=== PATIENT | female | born 1975 | race Caucasian/White ===

== ENCOUNTER 2016-09-09 15:49 | Emergency (ER) | payer MEDICAID ==
[2016-09-09] MEDS ORDERED: NS 1,000 ML IV ONE (16:21)
--- NOTE | 2016-09-09 16:22 | EDPHY ---
H & P Stated Complaint: Back Pain, Left flank pain x1 week Time Seen by Provider: 09/09/16 16:08 HPI/ROS: CHIEF COMPLAINT: left rib pain HISTORY OF PRESENT ILLNESS: The patient is a 41-year-old female who comes to the emergency department complaining of left-sided rib pain. She states that she fell while walking in the snow and hit some snow with left side of her ribs 1 week ago. The next day she began having pain is had pain ever since. Initially she thought that it might be GI because she has a history of GI complaints in irritable bowel disease. She saw her primary as well as a prop maker who told her was unlikely to be gastrointestinal a related. Her primary also performed a urinalysis that she reports was negative. She has not had any dysuria. She has not had a fever. She has not had any hematuria. The pain is been constant and hurts with movement or palpation. No shortness of breath. No history of cardiac disease. She also has a history of chronic pain and states that she has been smoking a lot of marijuana but the pain does not go away. She had a cervical spine injection 3 days ago and she states that this has significantly helped the pain and paresthesias in her left arm. She does not think that those are related. REVIEW OF SYSTEMS: Constitutional: denies: chills, fever, recent illness, recent injury EENTM: denies: blurred vision, double vision, nose congestion Respiratory: denies: cough, shortness of breath Cardiac: denies: chest pain, irregular heart rate, lightheadedness, palpitations Gastrointestinal/Abdominal: denies: abdominal pain, diarrhea, nausea, vomiting, blood streaked stools Genitourinary: denies: dysuria, frequency, hematuria, pain Musculoskeletal: See HPI Skin: denies: lesions, rash, jaundice, bruising Neurological: denies: headache, numbness, paresthesia, tingling, dizziness, weakness Hematologic/Lymphatic: denies: blood clots, easy bleeding, easy bruising Immunologic/allergic: denies: HIV/AIDS, transplant EXAM: GENERAL: Well-appearing, well-nourished and in no acute distress. HEAD: Atraumatic, normocephalic. EYES: Pupils equal round and reactive to light, extraocular movements intact, sclera anicteric, conjunctiva are normal. ENT: TMs normal, nares patent, oropharynx clear without exudates. Moist mucous membranes. NECK: Normal range of motion, supple without lymphadenopathy or JVD. LUNGS: Left-sided anterior rib pain. No crepitus or deformity. Breath sounds clear to auscultation bilaterally and equal. No wheezes rales or rhonchi. HEART: Regular rate and rhythm without murmurs, rubs or gallops. ABDOMEN: Soft, nontender, normoactive bowel sounds. No guarding, no rebound. No masses appreciated. BACK: No CVA tenderness, no spinal tenderness, step-offs or deformities EXTREMITIES: Normal range of motion, no pitting or edema. No clubbing or cyanosis. NEUROLOGICAL: Cranial nerves II through XII grossly intact. Normal speech, normal gait. 5/5 strength, normal movement in all extremities, normal sensation PSYCH: Normal mood, normal affect. SKIN: Warm, dry, normal turgor, no visible rashes or lesions. Source: Patient Exam Limitations: No limitations - Personal History LMP (Females 10-55): Unknown Current Tetanus/Diphtheria Vaccine: Unsure Current Tetanus Diphtheria and Acellular Pertussis (TDAP): Unsure - Medical/Surgical History Hx Asthma: No Hx Chronic Respiratory Disease: No Hx Diabetes: No Other PMH: PMH: chronic fatigue, "GI problems", "spine injection",. PSH: [place] - Family History Significant Family History: No pertinent family hx - Social History Smoking Status: Never smoked Alcohol Use: None Drug Use: None Constitutional: Initial Vital Signs Temperature (C) 36.7 C 09/09/16 15:57 Heart Rate 53 L 09/09/16 15:57 Respiratory Rate 18 09/09/16 15:57 Blood Pressure 108/61 09/09/16 15:57 O2 Sat (%) 96 09/09/16 15:57 O2 Delivery Mode Room Air Allergies/Adverse Reactions: acetaminophen [From Percocet] Allergy (Verified 09/09/16 16:03) codeine Allergy (Verified 09/09/16 16:03) diclofenac Allergy (Verified 09/09/16 16:03) oxycodone HCl [From Percocet] Allergy (Verified 09/09/16 16:03) Home Medications: Medication Instructions Recorded Unobtainable 09/09/16 Medical Decision Making - Diagnostics Imaging: X-ray: chest x-ray was obtained. I viewed the images myself on the PACS system. My interpretation of the images is: Left rib fracture. The radiologist interpretation is left 10th rib fracture. ED Course/Re-evaluation: 5:40 p.m. we discussed the x-ray results. The patient is relieved to have a diagnosis. Discussed the amounts of Tylenol and ibuprofen that would be appropriate to take. She will also continue to smoke marijuana. She does not ask for narcotics. She declines further workup or testing at this time is eager to go home. Differential Diagnosis: Partial list of the Differential diagnosis considered include but were not limited to; rib fracture, contusion, kidney stone, urinary tract infection and although unlikely based on the history and physical exam, I also considered pneumonia, peptic ulcer disease, ovarian cyst,. I discussed these differential diagnoses and the plan with the patient as well as the usual and expected course. The patient understands that the diagnosis is provisional and that in medicine we are not always correct and that further workup is often warranted. Usual and customary warnings were given. All of the patient's questions were answered. The patient was instructed to return to the emergency department should the symptoms at all worsen or return, otherwise to followup with the physician as we discussed. - Data Points Laboratory Results: Laboratory Results 09/09/16 16:45 09/09/16 16:45 09/09/16 09/09/16 09/09/16 16:45 16:45 16:45 WBC 10.23 10^3/uL H 10^3/uL (3.80-9.50) RBC 4.81 10^6/uL 10^6/uL (4.18-5.33) Hgb 14.8 g/dL g/dL (12.6-16.3) Hct 44.5 % % (38.0-47.0) MCV 92.5 fL fL (81.5-99.8) MCH 30.8 pg pg (27.9-34.1) MCHC 33.3 g/dL g/dL (32.4-36.7) RDW 12.9 % % (11.5-15.2) Plt Count 264 10^3/uL 10^3/uL (150-400) MPV 9.5 fL fL (8.7-11.7) Neut % (Auto) 62.6 % % (39.3-74.2) Lymph % (Auto) 28.9 % % (15.0-45.0) [place] % (Auto) 7.4 % % (4.5-13.0) Eos % (Auto) 0.4 % L % (0.6-7.6) Baso % (Auto) 0.4 % % (0.3-1.7) Nucleat RBC Rel Count 0.0 % % (0.0-0.2) Absolute Neuts (auto) 6.40 10^3/uL 10^3/uL (1.70-6.50) Absolute Lymphs (auto) 2.96 10^3/uL 10^3/uL (1.00-3.00) Absolute Monos (auto) 0.76 10^3/uL 10^3/uL (0.30-0.80) Absolute Eos (auto) 0.04 10^3/uL 10^3/uL (0.03-0.40) Absolute Basos (auto) 0.04 10^3/uL 10^3/uL (0.02-0.10) Absolute Nucleated RBC 0.00 10^3/uL 10^3/uL (0-0.01) Immature Gran % 0.3 % % (0.0-1.1) Immature Gran # 0.03 10^3/uL 10^3/uL (0.00-0.10) Sodium 141 mEq/L mEq/L (134-144) Potassium 4.1 mEq/L mEq/L (3.5-5.2) Chloride 106 mEq/L mEq/L (97-110) Carbon Dioxide 23 mEq/l mEq/l (22-31) Anion Gap 12 mEq/L mEq/L (8-16) BUN 15 mg/dL mg/dL (7-23) Creatinine 0.8 mg/dL mg/dL (0.6-1.0) Estimated GFR > 60 Glucose 81 mg/dL mg/dL (70-100) Calcium 10.0 mg/dL mg/dL (8.5-10.4) Total Bilirubin 0.7 mg/dL mg/dL (0.1-1.4) Conjugated Bilirubin 0.2 mg/dL mg/dL (0.0-0.5) Unconjugated Bilirubin 0.5 mg/dL mg/dL (0.0-1.1) AST 22 IU/L IU/L (14-46) ALT 34 IU/L IU/L (9-52) Alkaline Phosphatase 58 IU/L IU/L (38-126) Total Protein 7.4 g/dL g/dL (6.3-8.2) Albumin 4.6 g/dL g/dL (3.5-5.0) Lipase 174.0 IU/L IU/L (23-300) Beta HCG, Qual NEGATIVE Medications Given: Discontinued Medications Sodium Chloride (Ns) 1,000 mls @ 0 mls/hr IV ONCE ONE PRN Reason: Wide Open Stop: 09/09/16 16:22 Last Admin: 09/09/16 16:54 Dose: 1,000 mls Departure - Departure Disposition: Home, Routine, Self-Care Clinical Impression: Rib fracture Qualifiers: Encounter type: initial encounter Rib fracture type: single rib Fracture type: closed Laterality: left Qualified Code(s): S22.32XA - Fracture of one rib, left side, initial encounter for closed fracture Condition: Fair Instructions: Rib Fracture (ED) Additional Instructions: You may take 1000 mg of Tylenol every 8 hours . You may take 800 mg of ibuprofen every 8 hours. He may take them together or alternating . Referrals: LINNEA JASON [Other] - As per Instructions
[2016-09-09 17:01] LABS: % IMMATURE GRANULYOCYTES 0.3 % (0.0-1.1); ABSOLUTE IMMATURE GRANULOCYTES 0.03 10^3/uL (0.00-0.10); ADD DIFF? NO; ADD MORPH? NO; ADD SCAN? NO; ATYPICAL LYMPHOCYTE FLAG 10 (0-99); FRAGMENT RBC FLAG 0 (0-99); HEMATOCRIT 44.5 % (38.0-47.0); HEMOGLOBIN 14.8 g/dL (12.6-16.3); LEFT SHIFT FLG 10 (0-99); LIPEMIA HEMOLYSIS FLAG 80 (0-99); MEAN CELL HEMOGLOBIN 30.8 pg (27.9-34.1); MEAN CELL HEMOGLOBIN CONCENTR. 33.3 g/dL (32.4-36.7); MEAN CELL VOLUME 92.5 fL (81.5-99.8); MEAN PLATELET VOLUME 9.5 fL (8.7-11.7); PLATELET CLUMPS FLAG 0 (0-99); PLATELET COUNT 264 10^3/uL (150-400); RED BLOOD CELL COUNT 4.81 10^6/uL (4.18-5.33); RED CELL DISTRIBUTION WIDTH 12.9 % (11.5-15.2)
[2016-09-09 17:17] LABS: ALANINE AMINOTRANSFERASE 34 IU/L (9-52); ALBUMIN 4.6 g/dL (3.5-5.0); ALKALINE PHOSPHATASE 58 IU/L (38-126); ANION GAP 12 mEq/L (8-16); ASPARTATE AMINOTRANSFERASE 22 IU/L (14-46); BILIRUBIN,TOTAL 0.7 mg/dL (0.1-1.4); BILIRUBIN-CONJUGATED 0.2 mg/dL (0.0-0.5); BILIRUBIN-UNCONJUGATED 0.5 mg/dL (0.0-1.1); CARBON DIOXIDE 23 mEq/l (22-31); CHLORIDE 106 mEq/L (97-110); CREATININE 0.8 mg/dL (0.6-1.0); GLOMERULAR FILTRATION RATE > 60; GLUCOSE 81 mg/dL (70-100); POTASSIUM 4.1 mEq/L (3.5-5.2); SODIUM 141 mEq/L (134-144); TOTAL PROTEIN 7.4 g/dL (6.3-8.2)
[2016-09-09 17:52] VITALS: BP 121/88; PULSE 86; RESP 20; TEMP 98.8; O2SAT 99
== END 2016-09-09 17:52 | disposition home or self-care (01) ==
DX: S22.32XA Fracture of one rib, left side, initial encounter for closed fracture (principal); W18.09XA Striking against other object with subsequent fall, initial encounter; Y99.8 Other external cause status; Y93.01 Activity, walking, marching and hiking

== ENCOUNTER 2017-03-06 07:41 | Day surgery (SDC) | payer MEDICAID ==
--- NOTE | 2017-03-02 08:34 | PDGENHP ---
History and Physical - Chief Complaint LEFT HIP PAIN - History of Present Illness Bilateral~Femoroacetabular impingement (CHALINO) Cam type~~(L>R) HISTORY OF PRESENT ILLNESS: Jeannieis a 41 y.o.~active female~who I have had the pleasure to consult on today. ~I have enjoyed meeting her. She~lives in [place]. ~Jeanniedoes not work due to Chronic Fatigue syndrome; she is also in remission from breast cancer for the past 2 years. 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 She ~is single; she~has no~children. ~Jeannieenjoys hiking, swimming, biking. Alexia's bilateral~hip pain (L>R). The left hip has been bothering her for 5-6 years; the right hip has been bothering her for 2-3 years. She has no recalled trauma or injury, and with no~previous complaints.~Jeanniedoes not have~a known history of hip dysplasia. Presentation today is of C-pattern left hip pain with radiation up to the iliac crest, and right hip posterior pain. The hip does~wake her~at night and does~ click and catch on her. Sitting can be a real struggle~for her. Jeanniedoes~ report suffering from lower back pain episodes. Jeanniehas not~participated in physical therapy and has not~tried other conservative measures. She~has not~received sufficient symptomatic improvement. Jeanniehas~utilized medication for pain management, including NSAID and OTC acetaminophen~and medical marijuana. Jeanniehas used medical marijuana for 6 years and NSAID/acetaminophen for 4-5 weeks. Jeannieunderstands that she~has a hip and pelvis problem which should be researched and wishes to get a better understanding of her~hip status, followed by an establishment of a treatment strategy, hoping she~would be able to get back to her~well being active life. History: Past medical history: ~ Patient ~has a past medical history of Abnormal glandular Papanicolaou smear of cervix; Breast cancer (HC code) (2013); Broken rib; Chronic fatigue syndrome; Chronic fatigue syndrome (07/2012); Chronic pain syndrome; Eczema; Gastrointestinal disorder; Medical marijuana use; Migraines; Reactive airway disease; and Seasonal allergies. She also has no past medical history of Abnormal stress test; Abnormal stress test; Arthritis; Chlamydia; Congenital anomaly of heart; Diabetes insipidus (HC code); Diabetes mellitus of mother, complicating , childbirth, or the puerperium, unspecified as to episode of care(648.00); Gonorrhea; Hearing loss; High cholesterol; Hypertension ; Inflammatory bowel disease; Rheumatic fever/heart disease; Seizures (HC code) ; Sickle cell anemia (HC code); Syncope and collapse; Unspecified asthma(493.90) ; or Vision abnormalities. Relevant familial history: DM Past surgical history: No. Surgery Anesthesia Year Outcome 1 Right breast lumpectomy General 2014 Good 2 Gall Bladder General 2015 Good Alexia~denies problematic issues with general anesthesia in the past. I have reviewed, verified and agree with the past medical, surgical, family and social history. Current Medications:~has a current medication list which includes the following prescription(s): acetaminophen, ascorbate calcium, azelastine, cetirizine, cyclobenzaprine, diazepam, hydrocodone-acetaminophen, ibuprofen, lactobacillus acidophilus, lidocaine, lidocaine, lidocaine 5% (700 mg/patch), lorazepam, magnesium, mometasone, multivitamin, naratriptan, ondansetron, triamcinolone, and UNABLE TO FIND. ALLERGIES:~is allergic to effexor [venlafaxine]; diclofenac sodium; gluten; percocet [oxycodone-acetaminophen]; and tylenol-codeine [acetaminophen-codeine]. Objective: Physical Examination: Jeannieis 5~feet 8~inches tall and weighs~137~Lbs. Alexia~is AAO x3; she~is well- nourished, in NAD. Skin is warm and dry. ~Breathing is non-labored. ~CV with RRR by pulse. Abdomen is soft, NTND. Currently, she~walks with a normal~gait. Trendelenburg sign is negative~and proprioception~is reduced, both~sides. She~presents~with moderate~signs of joint laxity.~Beightons Score: 5 Lower spine examination is negative~for sciatic or femoral nerve irritation with negative~SLR &~femoral stretch tests. Range of motion of the spine is normal~for flexion, extension, and rotations, with no~associated pain. Strength, Sensation and pulses are normal - bilaterally~abnormal - normal~with exception of~lateral left leg numbness. Ankles and knees exams are normal~and no~mal-alignment is evident. She~has~no leg length discrepancy. Thigh circumference is symmetric~with no evidence for muscle atrophy~on both~ sides. Hip ROM (degrees): FL ER At 90~hip FL IR At 90~hip FL AB AD EX IR Neutral hip ER Neutral hip R 115 50 15 40 5 5 45 40 L 110 50 20 40 5 5 45 40 Specific hip and pelvis tests: Quadrant ALEXIS Roll Add. Longus R + + Negative Negative L +++ +++ +++ +++ Glut. Med ITB Pos. Imp R Negative 5/5 strength Negative 5/5 strength Negative L Negative 5/5 strength Negative 5/5 strength Negative Squeeze test measured normal Bony Symphysis pubis is painful~to touch while concentric activity of the rectus abdominis, does~produce pain at its insertion on left side. Ilio Psos specific tests are positive for pain during cycling for the left hip~ and no snap. HF has good strength/no pain both hips. Anterior and posterior capsule tenderness bilaterally, Lateral capsule on Left. Greater trochanteric burse is painful~on the left hip. Piriformis tests: FAIR is negative, with no~local signs of neuritis related to sciatic nerve. SIJs examination is produces pain on both sides~with normal~ALEXIS in relation and local tenderness. Hamstrings tests are negative~functional contraction and~positive~tendinopathy both hips. L>R at insertion site. On a daily basis, the following percentages reflect Alexia's overall total pain: Deep hip: 60% SI: 25% GT: 5% Adductor: 5% Back: 10% Imaging: Radiology studies which I~have personally reviewed, analyzed and measured are below: XR: AP of the hip and pelvis: Performed in a good~technique Coccyx to pubic symphysis distance 1.9~cm. 0~caudal/cephal [place]~Lines are preserved. Minimal~Pathological signs are seen in the Symphysis Pubis. Minimal~Pathological signs are seen at the Ischial~tuberosity. ~ Specific measurements show: NSA~ LCE Sourcil~Angle Sharp's angle Lat. Cam Lat. Pincer C.Over~sign Head~Coverage % ATDmm R N 32 6 46 - - - N N L N 31 5 46 - - - N N Pos. wall sign ISS NAD ~~Dysplasia Comments R Negative Negative 18~mm Negative L Negative Negative 13~mm Negative Sclerosis Sup. Lat. OA Cysts Joint Space-WBZ Joint Space-Medial R Negative Negative Negative 5.5~mm 4.6~mm L Negative Negative Negative 5.3~mm 4.2~mm X Table lateral: Anterior cam lesion is seen~on both hips. Alpha Angle: ~ Right 64~dergrees Left 65~degrees In order to differentiate between the various possible sources of pain Jeannie opted to move forward with a Left hip~intra articular injection today in clinic. After verbal consent was obtained and Jeannievoiced understanding of risks of infection, misplaced injection, fat or skin atrophy or injection into unintended structures, skin was prepped and draped in routine sterile fashion. With sterile technique, after local skin and subcutaneous tissues were injected with 5cc 1% lidocaine, an injection of 2cc of Kenalog 40 and 5cc of 1% lidocaine +marcaine~was injected into Alexia's hip joint without complication. The procedure was well tolerated. Jeannienoted improved symptoms with activity immediately after injection. The injection took away 70% of her deep hip pain and 50-60% of her overall pain, confirming~the hip joint as the major source of her~pain. Impression and plan:~ Jeannieis a 41 y.o.~active female~suffering from symptomatic bilateral~hip pain (L >R)~due to Bilateral~Femoroacetabular impingement (CHALINO) Cam type~causing significant disability to her~and altering~her~sport and life activities. Physical examination, imaging, and her~story correspond with the diagnosis mentioned above. As Alexia has not attempted Physical Therapy we will prescribe this for her. Alexia will follow-up with us in 2-3 months. If her pain has returned we will consider getting a 3D CT and discussing surgical treatment options with her. Jeannieis happy with this plan. I wish~Alexia~all the best, ~~ Kris Lamb MD History Information - Allergies/Home Medication List Allergies/Adverse Reactions: acetaminophen [From Percocet] Allergy (Verified 09/09/16 16:03) codeine Allergy (Verified 09/09/16 16:03) diclofenac Allergy (Verified 09/09/16 16:03) oxycodone HCl [From Percocet] Allergy (Verified 09/09/16 16:03) Home Medications: Cyclobenzaprine 01/16/17 [Last Taken Unknown] Herbals/Supplements -Info Only 01/16/17 [Last Taken Unknown] Lidocaine 01/16/17 [Last Taken Unknown] Mometasone Furoate Nasal 01/16/17 [Last Taken Unknown] Tylenol 01/16/17 [Last Taken Unknown] Zofran 01/16/17 [Last Taken Unknown] I have personally reviewed and updated: medical history - Social History Smoking Status: Former smoker
[2017-03-06] MEDS ORDERED: ACETAMINOPHEN 500 MG TAB PO ONE (08:01)
[2017-03-06] MEDS ORDERED: PREGABALIN 150 MG CAP PO ONE (08:01)
[2017-03-06] MEDS ORDERED: ceFAZolin 2 GM/DEXTROSE 100 ML IV ONE (08:01)
[2017-03-06 08:05] VITALS: PULSE 58
[2017-03-06] MEDS ORDERED: LR 1,000 ML IV ONE (08:05)
[2017-03-06] MEDS ORDERED: HYDROmorphONE/DILAUDID 2 MG/ML INJ ONE ×2 (09:28→12:01)
[2017-03-06] MEDS ORDERED: HYDROmorphONE/DILAUDID 1 MG/ML SYR IVP ONE (09:45)
[2017-03-06] MEDS ORDERED: SCOPOLAMINE HYDROBROMIDE 1.5 MG PATCH TD ONE ×2 (09:56→10:00)
--- NOTE | 2017-03-06 10:04 | PDANEPAE ---
ANE History of Present Illness left hip CHALINO ANE Past Medical History - Cardiovascular History Hx Hypertension: No Hx Arrhythmias: No Hx Chest Pain: No Hx Coronary Artery / Peripheral Vascular Disease: No Hx CHF / Valvular Disease: No Hx Palpitations: Yes Cardiovascular History Comment: OCCAS PALPITATIONS - Pulmonary History Hx COPD: No Hx Asthma/Reactive Airway Disease: Yes Hx Recent Upper Respiratory Infection: No Hx Oxygen in Use at Home: No Hx Sleep Apnea: No Sleep Apnea Screening Result - Last Documented: Negative - Neurologic History Hx Cerebrovascular Accident: No Hx Seizures: No Hx Dementia: No Neurologic History Comment: MIGRAINES - GETS TRIGGER POINT INJECTIONS - Endocrine History Hx Diabetes: No - Renal History Hx Renal Disorders: Yes Renal History Comment: FREQUENCY,PAIN W/FULL BLADDER SINCE RADIATION - Liver History Hx Hepatic Disorders: Yes Hepatic History Comment: CHOLECYSTECTOMY. CYST ON LIVER - Neurological & Psychiatric Hx Hx Neurological and Psychiatric Disorders: Yes Neurological / Psychiatric History Comment: PTSD - Cancer History Hx Cancer: Yes Cancer History Comment: BREAST CA - Congenital Disorder History Hx Congenital Disorders: No - GI History Hx Gastrointestinal Disorders: Yes Gastrointestinal History Comment: ABD PAIN - Other Health History Other Health History: CHRONIC FATIGUE SYNDROME. CHEMO AND RADIATION 2013 FOR BREAST CANCER - Chronic Pain History Chronic Pain: Yes (NECK PAIN, L HIP, LOW BACK) - Surgical History Prior Surgeries: CHOLECYSTECTOMY. BREAST LUMPECTOMY R. L BREAST CYST ASPIRATION. HEMMORRHOID BANDING. SHOULDER LIPOMA ANE Review of Systems - Exercise capacity METS (RN): 4 METS ANE Patient History - Allergies Allergies/Adverse Reactions: acetaminophen [From Percocet] Allergy (Verified 09/09/16 16:03) codeine Allergy (Verified 09/09/16 16:03) diclofenac Allergy (Verified 09/09/16 16:03) oxycodone HCl [From Percocet] Allergy (Verified 09/09/16 16:03) - Home Medications Home medications: home medication list seen and reviewed Home Medications: Cyclobenzaprine 01/16/17 [Last Taken 03/05/17] Herbals/Supplements -Info Only 01/16/17 [Last Taken 2 Weeks Ago] Lidocaine 01/16/17 [Last Taken 1 Week Ago] Mometasone Furoate Nasal 01/16/17 [Last Taken 1 Week Ago] Tylenol 01/16/17 [Last Taken 2 Days Ago] Zofran 01/16/17 [Last Taken 1 Month Ago] - NPO status NPO Since - Liquids (Date): 03/05/17 NPO Since - Liquids (Time): 23:00 NPO Since - Solids (Date): 03/05/17 NPO Since - Solids (Time): 20:00 - Anes Hx Anes Hx: no prior problems - Smoking Hx Smoking Status: Former smoker ANE Labs/Vital Signs - Vital Signs Blood Pressure: 128/68 Heart Rate: 58 Respiratory Rate: 18 O2 Sat (%): 94 Height: 172.72 cm Weight: 61.235 kg ANE Physical Exam - Airway Neck exam: FROM Mallampati Score: Class 1 Mouth exam: normal dental/mouth exam - Pulmonary Pulmonary: no respiratory distress - Cardiovascular Cardiovascular: regular rate and rhythym - ASA Status ASA Status: II ANE Anesthesia Plan Anesthesia Plan: general endotracheal anesthesia
[2017-03-06] MEDS ORDERED: MIDAZOLAM 2 MG/2 ML VIAL IVP ONE (10:06)
[2017-03-06] MEDS ORDERED: BUPIVACAINE/EPI 0.25% 30 ML SDV ONE (10:06)
[2017-03-06] MEDS ORDERED: PROPOFOL 200 MG/20 ML VIAL ONE (10:12)
[2017-03-06] MEDS ORDERED: fentaNYL 100 MCG/2 ML INJ ONE ×4 (10:12→14:31)
[2017-03-06] MEDS ORDERED: SUGAMMADEX SODIUM 200 MG/2 ML VIAL IVP ONE (10:13)
[2017-03-06] MEDS ORDERED: ONDANSETRON 4 MG/2 ML VIAL ONE (10:13)
[2017-03-06] MEDS ORDERED: DEXAMETHASONE 4 MG/ML VIAL ONE (10:13)
[2017-03-06] MEDS ORDERED: LIDOCAINE 2% 5 ML SDV ONE (10:13)
[2017-03-06] MEDS ORDERED: BUPIVACAINE 0.25% 30 ML SDV ONE (10:24)
[2017-03-06] MEDS ORDERED: METOCLOPRAMIDE 10 MG/2 ML VIAL IVP PRN (14:03)
[2017-03-06] MEDS ORDERED: NALOXONE HCL 0.4 MG/ML INJ IVP PRN (14:03)
[2017-03-06] MEDS ORDERED: ONDANSETRON 4 MG/2 ML VIAL IVP PRN (14:03)
[2017-03-06] MEDS ORDERED: LR 500 ML IV PRN (14:03)
--- NOTE | 2017-03-06 14:05 | POSTANESTH ---
Post Anesthetic Evaluation Cardiovascular Status: Normal, Stable Respiratory Status: Normal, Stable Level of Consciousness/Mental Status: Can Participate in Eval Pain Control: Adequate, Prn Tx Ordered Nausea/Vomiting Control: Adequate, Prn Tx Ordered Complications Possibly Related to Anesthesia: None Noted
[2017-03-06] MEDS: HYDROmorphONE/DILAUDID 1 MG/ML SYR IVP PRN ×3 (14:09→14:28)
[2017-03-06] MEDS ORDERED: HYDROmorphONE/DILAUDID 1 MG/ML SYR ONE ×2 (14:09→14:31)
[2017-03-06] MEDS: fentaNYL 100 MCG/2 ML INJ IVP PRN ×4 (14:09→14:29)
[2017-03-06] MEDS ORDERED: HYDROmorphONE/DILAUDID 4 MG TAB PO PRN (15:23)
[2017-03-06] MEDS ORDERED: HYDROmorphONE/DILAUDID 2 MG TAB ONE ×2 (15:46→16:27)
[2017-03-06] MEDS ORDERED: HYDROmorphONE/DILAUDID 2 MG TAB PO PRN (16:07)
[2017-03-06 17:07] VITALS: RESP 15
[2017-03-06] MEDS ORDERED: diphenhydrAMINE 25 MG CAP PO PRN (17:09)
[2017-03-06 17:41] VITALS: BP 117/67; TEMP 98.4
[2017-03-06 18:13] VITALS: O2SAT 99
== END 2017-03-06 18:12 | disposition home or self-care (01) ==
LOC: FSGY 07:41
PROVIDERS: ATTEND Orthopaedic Surgery Sports Medicine
PROC: 0SQB4ZZ Repair Left Hip Joint, Percutaneous Endoscopic Approach (ICD-10-PCS; principal; 2017-03-06 08:30)
DX: M25.852 Other specified joint disorders, left hip (principal); M25.851 Other specified joint disorders, right hip; R53.82 Chronic fatigue, unspecified; Z85.3 Personal history of malignant neoplasm of breast; G89.4 Chronic pain syndrome; G43.909 Migraine, unspecified, not intractable, without status migrainosus; Z87.891 Personal history of nicotine dependence
CPT/HCPCS: J0171; J0690; J1100; J1170; J2250; J2405; J2704; J3010

== ENCOUNTER → 2017-05-30 | Outpatient (CLI) | payer MEDICAID | LOC: FIMAGING 13:25 | PROVIDERS: ATTEND Psychiatry & Neurology Neurology | DX: R68.89 Other general symptoms and signs (principal) ==

== ENCOUNTER 2018-01-15 14:29 | Emergency (ER) | payer MEDICAID ==
--- NOTE | 2018-01-15 14:55 | EDPHY ---
H & P Stated Complaint: l hip/increasingly painful since 8 months ago Time Seen by Provider: 01/15/18 14:52 HPI/ROS: HPI: This is a 42-year-old female who presents with Chief Complaint: l hip/increasingly painful since 8 months ago Location:left hip Quality: Pain Duration: Months Signs and Symptoms: No bleeding, no radiation, no numbness, no weakness, no tingling, no incontinence, + decreased range of motion, + swelling,+ pain, no fever Timing: Chronic Severity: 10 out 10 Context: Patient presents with use of crutches secondary to acute on chronic left hip pain associated with decreased range of motion and mild swelling. Patient reports that on Monday she had MRI of her left hip ordered by [facility] that showed stress fractures. She called the office today to be seen and was directed to come to the emergency room for further evaluation. Patient reports that she has been in pain for several months and no one is given her any medications to treat the pain. She reports that she is extremely worried about AVN and permanent damage. She admits that she is using crutches to aid ambulation. Described as constant, radiating, severe in intensity and any movement makes the pain worse. Denies changes in bowel or bladder habits, weakness, paresthesias. Chart review shows a history of femoral acetabular dysfunction and impingement syndrome. Patient reports that she had surgery last year on her left hip and is scheduled for surgery on her right hip in February. She feels that she is putting more stress on her left hip since her right hip was acting up and now that is causing the pain. Patient reports that she has been fired from her primary care provider who will no longer prescribe pain medications for her. Modifying Factors: Crutches Comment: ROS: see HPI Constitutional: No fever, no chills, no weight loss Eyes: No blurred vision Respiratory: No shortness of breath, no cough Cardiovascular: No chest pain Gastrointestinal: No nausea, no vomiting no diarrhea Genitourinary: No dysuria Extremities: No myalgias Neurologic: No weakness, no numbness Skin: No rashes Hematologic: No bruising, no bleeding MEDICAL/SURGICAL/SOCIAL HISTORY: PMH: chronic fatigue, "GI problems", "spine injection", PSH: Cholecystectomy, hip surgery, breast cancer Social history: Former smoker. CONSTITUTIONAL: Extremely labile and irritable middle-aged white female, awake and alert, no obvious distress HEENT: Atraumatic and normocephalic. EXTREMITIES: 2/2 pulses, strength 5/5, left HIP: Flexion to 90, extension to 90, hyper extension to 15, abduction to 45. Pain with internal rotation and external rotation. + tenderness over greater trochanter. DIP/PIP/MCP flexion/ extension intact with good light touch sensation. no deformities, no clubbing, no cyanosis or edema. NEUROLOGICAL: no focal neuro deficits. GCS 15. Light touch sensation intact. SKIN: Warm and dry, no erythema. no rash. Good capillary refill. Source: Patient, RN/MD Exam Limitations: No limitations - Personal History LMP (Females 10-55): 15-21 Days Ago Current Tetanus Diphtheria and Acellular Pertussis (TDAP): Unsure - Medical/Surgical History Hx Asthma: No Hx Chronic Respiratory Disease: No Hx Diabetes: No Hx Cardiac Disease: No Hx Renal Disease: No Hx Cirrhosis: No Hx Alcoholism: No Hx HIV/AIDS: No Hx Splenectomy or Spleen Trauma: No Other PMH: PMH: chronic fatigue, "GI problems", "spine injection",. PSH: [facility] hipsurgery/breast cancer - Social History Smoking Status: Former smoker Constitutional: Initial Vital Signs Temperature (C) 36.4 C 01/15/18 14:40 Heart Rate 104 H 01/15/18 14:40 Respiratory Rate 18 01/15/18 14:40 Blood Pressure 140/73 H 01/15/18 14:40 O2 Sat (%) 94 01/15/18 14:40 O2 Delivery Mode Room Air Allergies/Adverse Reactions: acetaminophen [From Percocet] Allergy (Verified 01/15/18 14:39) codeine Allergy (Verified 01/15/18 14:39) diclofenac Allergy (Verified 01/15/18 14:39) oxycodone HCl [From Percocet] Allergy (Verified 01/15/18 14:39) Home Medications: Medication Instructions Recorded Cyclobenzaprine 01/16/17 Herbals/Supplements -Info Only 01/16/17 Lidocaine 01/16/17 Mometasone Furoate Nasal 01/16/17 Tylenol 01/16/17 Zofran 01/16/17 Medical Decision Making ED Course/Re-evaluation: Patient is extremely irritable and labile and asking for pain medication. Researched [place] PDMP database that showed last prescription received was on 2017 of [place] dispense 20. By Dr. Suresh Marquez. 1545: Spoke with JAH Cooper at [facility] at [facility]. Patient is well-known to her. She is scheduled for physical therapy tomorrow. MRI of her left hip performed on 01/09/2018 shows mild left hamstring tendinosis, minimal bone marrow edema in the left femoral neck, no stress fracture, minimal degenerative bone marrow edema within the left acetabulum with no cartilage defects. Patient is followed by Dr. Edvin Martines is scheduled for intra-articular hip injection February 26 at this hospital. Patient is to continue physical therapy per his note. Does not recommend any narcotic medications. 1600: Discussed MRI results to patient who reports that she must of been confused about the stress fracture. She reports that she is able to take Dilaudid and Vicodin without any difficulties. I discussed with her that the emergency room does not prescribe chronic pain medications. She seems surprised that she had a physical therapy appointment tomorrow and reports to me that she will attend this. I did give her [place] x2 in the emergency room only. I do not believe repeat imaging of the hip is indicated at this time. This is merely an issue of chronic pain control. No signs of neurovascular compromise/tenting of skin/compartment syndrome/ extremities and joints examined above and below area of concern and are neurovascularly intact/septic arthritis. This patient was seen under the supervision of my secondary supervising physician. I evaluated care for this patient independently. Discussed this patient with Dr. Holman who did not see the patient. Differential Diagnosis: Differential diagnosis includes but is not limited to AVN, acetabular impingement syndrome, labral tear, greater trochanter bursitis, femoral fracture. Departure - Departure Disposition: Home, Routine, Self-Care Clinical Impression: Chronic left hip pain Condition: Good Instructions: Hip Pain (ED) Additional Instructions: Please keep your appointment with physical therapy tomorrow as previously scheduled. Please discuss with physical therapy and Orthopedics your concerns for uncontrolled pain. You would benefit from a referral to pain management. Return to the ER immediately if you experience new or worsening pain, discoloration, numbness, tingling, or any other symptoms that concern you. Follow-Up: Please follow-up as noted above. Follow-up sooner if your condition worsens or if you develop any new problems. Call as soon as possible for an appointment. Be clear when you call for an appointment that this is an Emergency Department follow-up. Contact the Emergency Department if you have trouble arranging follow-up care. Our referrals are not based on your insurance network. When time allows, contact your insurance carrier to verify the referral physician is in your plan. If not, get a referral for an in-target network analyst. Referrals: Justina Hua MD [Primary Care Provider] - Follow Up Only If Needed Edvin Solorzano MD [Medical Doctor] - As per Instructions
[2018-01-15] MEDS ORDERED: HYDROCODONE/APAP 5/325 TAB PO ONE (16:00)
[2018-01-15 16:39] VITALS: BP 97/60
== END 2018-01-15 16:40 | disposition home or self-care (01) ==
DX: M25.552 Pain in left hip (principal); G89.29 Other chronic pain; Z85.3 Personal history of malignant neoplasm of breast; Z87.891 Personal history of nicotine dependence

== ENCOUNTER 2018-01-30 15:10 | Emergency (ER) | payer MEDICAID ==
[2018-01-30 15:19] VITALS: BP 104/76
[2018-01-30] MEDS ORDERED: PROPARACAINE 0.5% 15 ML OPHT DROP ONE (15:21)
[2018-01-30] MEDS ORDERED: PROPARACAINE 0.5% 15 ML OPHT DROP OP ONE (15:42)
--- NOTE | 2018-01-30 15:48 | EDPHY ---
H & P Time Seen by Provider: 01/30/18 15:45 HPI/ROS: Chief complaint. Left eye irritation HPI. 42-year-old female presents emergency department left eye pain. Began earlier today following a colonoscopy. She is unaware of any injury. She does use make up [place] and it is possible that she got some glitter in her eye. She has been washing it to try to flush out any foreign body you're glitter. Continues to have pain and foreign body sensation. No eye history or contact lens. No previous eye surgery. No other complaints. No URI symptoms. She does complain of blurry vision to the left eye. ROS Constitutional. no fever/chills, no weakness Eyes. Left eye pain and blurry vision ENT. no sore throat, no nasal drainage Cardiovascular. no chest pain Respiratory. no shortness of breath, no cough Abdominal. no abdominal pain, no nausea/vomiting, no diarrhea . no problems urinating MS. no calf pain/swelling, no neck/back pain, no joint pain Skin. no rash Lymph. no swollen glands Neuro. no headache, no dizziness, no difficulty walking or with speech Past Medical/Surgical History: Past medical history significant for chronic fatigue, GI problems, spine injection, chronic hip pain, breast cancer Social History: Single, nonsmoker, no alcohol Smoking Status: Former smoker Physical Exam: General Appearance: Alert well-developed female moderate distress vital signs are stable Eyes: Left eye is somewhat injected. Pupils are equal round reactive. Funduscopic exam is normal. Extraocular movements are intact. No evidence for foreign body. ENT, Mouth: Mucous membranes are moist. Respiratory: There are no retractions, lungs are clear to auscultation. Cardiovascular: Regular rate and rhythm. Gastrointestinal: Abdomen is soft and nontender, no masses, bowel sounds normal. Neurological: Awake and alert, sensory and motor exams grossly normal. Skin: Warm and dry, no rashes. Musculoskeletal: Neck is supple nontender. Extremities symmetrical, full range of motion. Psychiatric: Patient is oriented X 3, there is no agitation. Constitutional: Initial Vital Signs Temperature (C) 37.1 C 01/30/18 15:16 Heart Rate 68 01/30/18 15:16 Respiratory Rate 17 01/30/18 15:16 Blood Pressure 104/76 01/30/18 15:16 O2 Sat (%) 96 01/30/18 15:16 O2 Delivery Mode Room Air Allergies/Adverse Reactions: acetaminophen [From Percocet] Allergy (Verified 01/30/18 15:15) codeine Allergy (Verified 01/30/18 15:15) diclofenac Allergy (Verified 01/30/18 15:15) oxycodone HCl [From Percocet] Allergy (Verified 01/30/18 15:15) Home Medications: Medication Instructions Recorded Cyclobenzaprine 01/16/17 Herbals/Supplements -Info Only 01/16/17 Lidocaine 01/16/17 Tylenol 01/16/17 Zofran 01/16/17 Gentamicin 0.3% [Gentak 0.3% Opht 2 drops LEFTEYE QID #1 opht.btl 01/30/18 Drops] Hydrocodone/APAP 5/325 [Christmas 1 each PO Q4-6PRN PRN #10 tab 01/30/18 5/325 (*)] Medical Decision Making Procedures: Alcaine and fluorescein are instilled in the left eye. The eye is examined under slit lamp. Patient has a superficial corneal abrasion over the pupil. There is no evidence for foreign body. No finding suggestive of globe perforation. No evidence for hyphema. Visual acuity shows right eye 20/25 and left eye 20/30 ED Course/Re-evaluation: Patient remained stable. The patient and I discussed findings on slit-lamp. We discussed corneal abrasion. We discussed treatment plan including criteria for return and importance of follow-up and further evaluation. She expresses understanding and agreement. Patient has an eye doctor in [place] whom she will follow up with. Re-evaluation again at 4:50 p.m.. She and I discussed again treatment plan and follow-up. She expresses understanding and agreement Differential Diagnosis: I considered foreign body, conjunctivitis, globe perforation, corneal abrasion - Data Points Medications Given: Discontinued Medications Proparacaine HCl (Alcaine 0.5%) 2 drops OP EDNOW ONE Stop: 01/30/18 15:43 Last Admin: 01/30/18 15:46 Dose: 1 drop Departure - Departure Disposition: Home, Routine, Self-Care Clinical Impression: Corneal abrasion Qualifiers: Encounter type: initial encounter Laterality: left Qualified Code(s): S05.02XA - Injury of conjunctiva and corneal abrasion without foreign body, left eye, initial encounter Condition: Good Instructions: Corneal Abrasion (ED) Additional Instructions: Antibiotic eyedrops using 2 drops 4 times daily next 3 days. Tylenol or hydrocodone for pain Return for worsening symptoms. Re-evaluation by your eye doctor in [place] in 2-3 days. Referrals: Justina Hua MD [Primary Care Provider] - As per Instructions Prescriptions: Gentamicin 0.3% [Gentak 0.3% Opht Drops] 2 drops LEFTEYE QID #1 opht.btl Hydrocodone/APAP 5/325 [Christmas 5/325 (*)] 1 each PO Q4-6PRN PRN #10 tab PRN Reason: Pain, Moderate
== END 2018-01-30 17:08 | disposition home or self-care (01) ==
LOC: EEVIPCON 15:10
DX: H18.892 Other specified disorders of cornea, left eye (principal); Z85.3 Personal history of malignant neoplasm of breast; Z87.891 Personal history of nicotine dependence